=== PATIENT | female | born 1985 | race Two or more races ===

== ENCOUNTER 2016-12-24 08:27 | Emergency (ER) | payer OTHER ==
[~2016-12-24] VITALS: Ht 160 cm; Wt 71.1 kg
[~2016-12-24 08:27] MED LIST: DOCU240C31 PO; IBUP-1222 PO; OXYC-302 PO
[2016-12-24 08:35] VITALS: BP 107/69
[2016-12-24] MEDS ORDERED: SODIUM CHLORIDE 0.9% 1,000ML IVBOLUS ONE (09:30)
[2016-12-24] MEDS ORDERED: SODIUM CHLORIDE FLUSH 10ML SYR IVF ONE (09:30)
[2016-12-24 09:59] LABS: ASPARTATE AMINO TRANSFERASE 8 U/L (15-37); BLOOD UREA NITROGEN 8 mg/dL (7-18)
== END 2016-12-24 10:29 | disposition home or self-care (01) ==
LOC: ED 10:23
DX: O26.892 Other specified pregnancy related conditions, second trimester (principal); Z3A.18 18 weeks gestation of pregnancy
CPT/HCPCS: 36415; 76805; 80053; 81001; 84702; 85025; 87086; 99285

== ENCOUNTER 2017-05-18 02:20 | Inpatient (IN) | payer OTHER ==
[~2017-05-18] VITALS: Ht 160 cm; Wt 81.8 kg
[2017-05-18] MEDS ORDERED: MISOPROSTOL 200 MCG TABLET ONE (02:50)
[2017-05-18] MEDS ORDERED: LIDOCAINE 1%, 20ML ONE (02:50)
[2017-05-18] MEDS ORDERED: NEWBORN KIT ONE (02:51)
[2017-05-18] MEDS ORDERED: OXYTOCIN 30U/ 0.9% NaCL 500ML 500 ML IV ONE (02:55)
[2017-05-18] MEDS ORDERED: D5%-LACTATED RINGERS 1,000 ML IV SCH (02:55)
[2017-05-18] MEDS ORDERED: FENTANYL PF 100 MCG/2ML IV PRN (03:00)
[2017-05-18] MEDS ORDERED: TERBUTALINE 1 MG/ML, 1ML SQ PRN (03:00)
[2017-05-18] MEDS ORDERED: FENTANYL PF 100 MCG/2ML IVPush PRN (03:00)
[2017-05-18] MEDS ORDERED: TERBUTALINE 1 MG/ML, 1ML IVPush PRN ×2 (03:00)
[2017-05-18] MEDS ORDERED: ALUMINUM/MAG/SIMETHICONE 30 ML UDC PO PRN (03:00)
[2017-05-18] MEDS ORDERED: ONDANSETRON 2MG/ML, 2ML IVPush PRN (03:00)
[2017-05-18] MEDS: LACTATED RINGERS 1,000 ML IV SCH ×2 (03:11→13:06)
[2017-05-18 03:51] LABS: HEMATOCRIT 39.8 % (34.6-47.8); HEMOGLOBIN 13.6 g/dL (11.7-16.4); WHITE BLOOD COUNT 10.7 x10^3/uL (3.4-10)
[2017-05-18 04:39] VITALS: BP 125/76
[2017-05-18] MEDS ORDERED: OXYTOCIN 30U/ 0.9% NaCL 500ML 500 ML ONE ×2 (05:35→21:46)
[2017-05-18] MEDS ORDERED: OXYTOCIN 30U/ 0.9% NaCL 500ML 500 ML IV PRN (05:55)
[2017-05-18] MEDS ORDERED: FENTANYL PF 100 MCG/2ML ONE (13:03)
[2017-05-18] MEDS ORDERED: AMPICILLIN 2 GM in SODIUM CHLORIDE 0.9% 50 ML IVPB ONE (14:32)
[2017-05-18] MEDS ORDERED: LACTATED RINGERS 1,000 ML IV SCH (14:43)
[2017-05-18] MEDS ORDERED: FENTANYL/BUPIV./NS/PF 250 ML EPIDCONT SCH (14:43)
[2017-05-18] MEDS ORDERED: BUPIVACAINE/PF 0.25% ONE (14:46)
[2017-05-18] MEDS ORDERED: FENTANYL/BUPIV./NS/PF 250 ML EPIDCONT ONE ×2 (14:46→14:49)
[2017-05-18] MEDS ORDERED: BUPIVACAINE 0.25% ONE (14:49)
[2017-05-18] MEDS ORDERED: EPHEDRINE 50 MG/ML, 1ML IVPush PRN (15:00)
[2017-05-18] MEDS ORDERED: LACTATED RINGERS 1,000 ML IVBOLUS PRN (15:00)
[2017-05-18] MEDS ORDERED: NALOXONE 0.4 MG/ML, 1ML IVPush PRN (15:00)
[2017-05-18] MEDS ORDERED: AMPICILLIN 2 GM in SODIUM CHLORIDE 0.9% 50 ML IVPB SCH (19:30)
[2017-05-18] MEDS ORDERED: MISOPROSTOL 200 MCG TABLET PR ONE (21:30)
[2017-05-18] MEDS: OXYTOCIN 30U/ 0.9% NaCL 500ML 500 ML IV SCH (21:54)
[2017-05-18] MEDS ORDERED: ACETAMINOPHEN 325 MG TABLET PO PRN (22:00)
[2017-05-18] MEDS ORDERED: BISACODYL 10 MG SUPP PR PRN (22:00)
[2017-05-18] MEDS ORDERED: ONDANSETRON 2MG/ML, 2ML IV PRN (22:00)
[2017-05-18] MEDS ORDERED: MEASLES,MUMPS&RUBELLA VACC/PF 0.5 ML SQ PRN (22:00)
[2017-05-18] MEDS ORDERED: MISOPROSTOL 200 MCG TABLET PO PRN (22:00)
[2017-05-18] MEDS ORDERED: OXYcodone/APAP 5/325MG TABLET PO PRN ×2 (22:00)
[2017-05-18] MEDS ORDERED: IBUPROFEN 600 MG TABLET ONE (22:22)
[2017-05-18] MEDS: IBUPROFEN 600 MG TABLET PO PRN (22:24)
[2017-05-18] MEDS: CEFAZOLIN PMX 2GM/50ML 50 ML IV SCH (23:00)
[2017-05-18 23:25] VITALS: BP 108/69
[2017-05-19] MEDS ORDERED: FLU VACC QS2017-18 (36MOS+) UP/PF 0.5 ML IM-VACC ONE ×2 (00:30→22:00)
[2017-05-19 04:40] VITALS: BP 99/57
[2017-05-19 05:19] LABS: HEMATOCRIT 37.2 % (34.6-47.8); HEMOGLOBIN 12.8 g/dL (11.7-16.4); WHITE BLOOD COUNT 16.5 x10^3/uL (3.4-10)
[2017-05-19] MEDS: CEFAZOLIN PMX 2GM/50ML 50 ML IV SCH ×2 (06:15→15:33)
[2017-05-19] MEDS: IBUPROFEN 600 MG TABLET PO PRN ×3 (07:11→19:19)
[2017-05-19 07:15] VITALS: BP 95/58
[2017-05-19] MEDS: OXYTOCIN 30U/ 0.9% NaCL 500ML 500 ML IV SCH ×2 (07:48→17:48)
[2017-05-19] MEDS: PRENATAL VIT/IRON/FA 1 EACH TABLET PO SCH (08:08)
[2017-05-19 11:15] VITALS: BP 95/60
[2017-05-19] MEDS: DOCUSATE 100 MG CAPSULE PO PRN ×2 (15:36→19:19)
[2017-05-19 15:50] VITALS: BP 86/52
[2017-05-19 19:10] VITALS: BP 95/52
[2017-05-20] MEDS: IBUPROFEN 600 MG TABLET PO PRN ×2 (01:25→07:41)
[2017-05-20] MEDS: OXYTOCIN 30U/ 0.9% NaCL 500ML 500 ML IV SCH (03:48)
[2017-05-20 07:15] VITALS: BP 107/63
[2017-05-20] MEDS: PRENATAL VIT/IRON/FA 1 EACH TABLET PO SCH (07:42)
[2017-05-20] MEDS ORDERED: IBUP-1222 PO (07:46)
[2017-05-20] MEDS ORDERED: DOCU-131 PO (07:47)
[2017-05-20] MEDS ORDERED: OXYC-302 PO (07:47)
== END 2017-05-20 09:27 | disposition home or self-care (01) | DRG 775 ==
LOC: LDOP 02:20 → LDIP 03:15 → 2NW 23:15
PROVIDERS: ADMIT Obstetrics & Gynecology; ATTEND Obstetrics & Gynecology
PROC: 10D07Z6 Extraction of Products of Conception, Vacuum, Via Natural or Artificial Opening (ICD-10-PCS; principal; 2017-05-18)
PROC: 0KQM0ZZ Repair Perineum Muscle, Open Approach (ICD-10-PCS; 2017-05-18)
PROC: 3E0R3BZ Introduction of Anesthetic Agent into Spinal Canal, Percutaneous Approach (ICD-10-PCS; 2017-05-18)
PROC: 00HU33Z Insertion of Infusion Device into Spinal Canal, Percutaneous Approach (ICD-10-PCS; 2017-05-18)
DX: O42.02 Full-term premature rupture of membranes, onset of labor within 24 hours of rupture (principal); E28.2 Polycystic ovarian syndrome; Z3A.38 38 weeks gestation of pregnancy; Z37.0 Single live birth; O69.1XX0 Labor and delivery complicated by cord around neck, with compression, not applicable or unspecified; O70.1 Second degree perineal laceration during delivery; O76 Abnormality in fetal heart rate and rhythm complicating labor and delivery; O77.0 Labor and delivery complicated by meconium in amniotic fluid; N80.9 Endometriosis, unspecified
CPT/HCPCS: 36415; 82803; 85025; 86850; 86900; 88307; 89060; 90686; J0290; J0690; J3010; J3490; J2590; J7120; J7121; Q0114

== ENCOUNTER → 2019-05-02 | Outpatient (CLI) | payer OTHER ==
[~2019-05-02] MED LIST changes: +DOCU-131 PO
== END | disposition home or self-care (01) ==
LOC: CFH 13:31
PROVIDERS: ATTEND Family Medicine
DX: N64.4 Mastodynia (principal); Z12.31 Encounter for screening mammogram for malignant neoplasm of breast; R92.2 Inconclusive mammogram
CPT/HCPCS: 76642; 77066; G0279